=== PATIENT | male | born 1960 | race Caucasian/White ===

== ENCOUNTER 2020-06-23 15:59 | Emergency (ER) | payer OTHER ==
[~2020-06-23] VITALS: Ht 177.8 cm; Wt 113.6 kg
[2020-06-23 16:13] VITALS: BP 168/79; Ht 177.8 cm; Wt 113.6 kg
[2020-06-23 16:59] LABS: BASOPHILS 0.3 % (0-2); HEMOGLOBIN 11.8 g/dL (13.5-17.5); IMMATURE GRANULOCYTES 0.4 % (0-5); LYMPHOCYTES 23.3 % (15-50); MCH 23.7 pg (26.0-34.0); MCHC 30.3 g/dL (31.0-37.0); MCV 78.5 fL (80.0-100.0); MEAN PLATELET VOLUME 9.2 fL (7.4-10.4); MONOCYTES 8.9 % (2-11); NEUTROPHIL ABS# 5.94 10x3/uL (1.78-5.38); NEUTROPHILS 63.1 % (40-80); PLATELET COUNT 380 10x3/uL (130-400); RBC 4.97 10x6/uL (4.20-6.10); RDW 16.4 % (11.5-14.5); WBC 9.4 10x3/uL (4.8-10.8)
[2020-06-23 17:05] LABS: APTT 31.1 SECONDS (22.8-39.4); CALC OSMOLALITY 277 mosm/kg (275-300); CALCIUM 8.6 mg/dL (8.5-10.1); CARBON DIOXIDE 29.2 mmol/L (21.0-32.0); CHLORIDE - SERUM 101 mmol/L (98-107); CREATININE - SERUM 1.4 mg/dL (0.6-1.3); GLUCOSE 105 mg/dL (74-106); INR 1.09 (0.85-1.17); POTASSIUM - SERUM 3.7 mmol/L (3.5-5.1); SODIUM 137 mmol/L (136-145); UREA NITROGEN 23 mg/dL (7-18); eGFR NON AFRICAN AMERICAN 55 mL/min (90-120)
[2020-06-23 17:22] LABS: ALBUMIN 3.1 g/dL (3.4-5.0); ALKALINE PHOSPHATASE 108 U/L (30-120); ALT (SGPT) 28 U/L (10-68); BILIRUBIN - TOTAL 0.32 mg/dL (0.2-1.3); CKMB 2.6 U/L (0.0-3.6); CREATINE KINASE 509 UL (21-232); PRO BNP 62 pg/mL (0-125); PROTEIN - SERUM 8.1 g/dL (6.4-8.2)
[2020-06-23 17:34] LABS: TROPONIN-I < 0.017 ng/mL (0.000-0.060)
[2020-06-23 18:37] LABS: SARS-CoV-2 ANTIGEN NEGATIVE- SARS-COV-2 (NEGATIVE)
== END 2020-06-23 19:36 | disposition left against medical advice (07) ==
LOC: D.ER 15:59
PROVIDERS: Family Medicine
DX: R06.02 Shortness of breath (principal); J98.11 Atelectasis; Z53.29 Procedure and treatment not carried out because of patient's decision for other reasons; J90 Pleural effusion, not elsewhere classified; R09.02 Hypoxemia; I10 Essential (primary) hypertension